=== PATIENT | female | born 1970 | race Caucasian/White ===

== ENCOUNTER 2017-08-30 00:28 | Emergency (ER) | payer BC ==
[2017-08-30 00:39] VITALS: BP 133/83; PULSE 89; TEMP 98.4; BMI 32.3
--- NOTE | 2017-08-30 00:43 | PDOC ---
History of Present Illness - General Chief Complaint: Pain Stated Complaint: RLQ PAIN Time Seen by Provider: 08/30/17 00:31 - History of Present Illness Initial Comments: This 46-year-old woman with a history of cervical carcinoma in situ (s/p hysterectomy 2006) and left oophorectomy last year for large mass (patient states was benign) presents with a few hour history of intermittent marked right lower quadrant/right pelvic pain. No history of fever/chills, nausea/ vomiting/diarrhea. Patient has not had any recent constipation. Pain does not change with position. No history of hematuria/dysuria/urinary frequency or urgency. Patient has no history of renal stones. The patient had her left ovary removed removed last year, patient was told that she had a cyst in the right ovary. She believes that the cyst on the right ovary was removed during the procedure. She was not told that her appendix was removed. Past History - Past Medical History Allergies/Adverse Reactions: Allergies Allergy/AdvReac Type Severity Reaction Status Date / Time No Known Allergies Allergy Verified 05/29/16 23:16 Cancer: Yes (CERVICAL/OVARIAN) COPD: No Other medical history: MIGRANES - Reproductive History Is Patient Now?: No Cervical CA: Yes - Suicide/Smoking/Psychosocial Hx Smoking History: Former smoker Have you smoked in the past 12 months: No Number of Cigarettes Smoked Daily: 0 Information on smoking cessation initiated: No Hx Alcohol Use: No Drug/Substance Use Hx: No Substance Use Type: None Review of Systems - Review of Systems Able to Perform ROS?: Yes Comments:: 12 point review of systems is negative except for what is noted in the history of present illness *Physical Exam - Vital Signs Last Vital Signs Temp Pulse Resp BP Pulse Ox 98.4 F 89 14 133/83 98 08/30/17 00:31 08/30/17 00:31 08/30/17 00:31 08/30/17 00:31 08/30/17 00:31 - Physical Exam Comments: GENERAL: Adult female, alert and oriented 3, in mild distress secondary to right lower quadrant/right pelvic pain HEAD: Normal with no signs of trauma. EYES: PERRLA, EOMI, sclera anicteric, conjunctiva clear. ENT: Ears normal, nares patent, oropharynx clear without exudates. Dry mucous membranes. NECK: Normal range of motion, supple without lymphadenopathy, JVD, or masses. LUNGS: Breath sounds equal, clear to auscultation bilaterally. No wheezes, and no crackles. HEART:Regular rate and rhythm, normal S1 and S2 without murmur, rub or gallop. ABDOMEN:.normal bowel sounds ; moderate right pelvic tenderness without guarding or rebound..No masses No distention. EXTREMITIES: Normal range of motion, no edema. No clubbing or cyanosis. No erythema, or tenderness. NEUROLOGICAL: Cranial nerves II through XII grossly intact. Normal speech. No focal neurological deficits. MUSCULOSKELETAL: Back non-tender to palpation, no CVA tenderness SKIN: Warm, Dry, normal turgor, no rashes or lesions noted. ED Treatment Course - LABORATORY CBC & Chemistry Diagram: 08/30/17 00:54 08/30/17 00:54 Progress Note - Progress Note Progress Note: CBC/chemistry/urinalysis sent and patient given a liter normal saline with 30 mg of Toradol IV. Abdominal/pelvic CT without contrast ordered Abdominal/pelvic CT as interpreted by Imaging phone specialist: No evidence of acute pathology-right ovary is normal sized without evidence of acute pathology; appendix is normal. There is no pelvic free fluid or discrete pelvic lymphadenopathy. No evidence of hydronephrosis or hydroureter. No retained stones seen. The remainder of the organs and visualized vascular structures are normal Laboratory evaluation is essentially normal without evidence of elevated white blood cell count; electrolytes, renal function and hepatic function are all within normal limits. Urinalysis shows 4 red blood cells per high-power field but no other significant abnormality. Results discussed with the patient. She has had significant relief in her pain since administration of Toradol. She does have some residual discomfort in the right pelvic area however. 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 Meanwhile, she should rest and drink plenty of fluids. She return to the emergency room if she has severe pain, vomiting or fever Work documentation was provided for the patient to return to work on Sunday, 09/03 *DC/Admit/Observation/Transfer Diagnosis at time of Disposition: Pelvic pain - Discharge Dispostion Disposition: HOME Condition at time of disposition: Stable - Referrals - Patient Instructions Printed Discharge Instructions: DI for Pelvic Pain Additional Instructions: Drink plenty of water Ibuprofen/acetaminophen/naproxen as needed for pain Follow-up with your plastic hospital products assembler tomorrow if you have continued pain Return to ER if you have severe pain or develop vomiting/fever Return to work on 09/03/17 - Post Discharge Activity Forms/Work/School Notes: Back to Work
[2017-08-30] MEDS ORDERED: KETOROLAC TROMETHAMINE 30 MG/1 ML VIAL IVPUSH ONE (00:56)
[2017-08-30] MEDS ORDERED: KETOROLAC TROMETHAMINE 30 MG/1 ML VIAL ONE (00:57)
[2017-08-30 01:25] LABS: BASO % 1.2 % (0-2.0); EOS % 3.6 % (0-4.5); HEMOGLOBIN 14.4 GM/dL (10.7-15.3); LYMPH % 29.7 % (8-40); MCH 30.3 pg (25.7-33.7); MCHC 34.2 g/dl (32.0-36.0); MEAN CELL VOLUME 88.6 fl (80-96); MEAN PLT VOLUME 9.6 fl (7.5-11.1); MONO % 4.6 % (3.8-10.2); NEUT % 60.9 % (42.8-82.8); PLATELET COUNT 283 K/MM3 (134-434); RBC 4.73 M/mm3 (3.60-5.2); RDW 13.4 % (11.6-15.6); WHITE BLOOD COUNT 9.2 K/mm3 (4.0-10.0)
[2017-08-30 01:33] LABS: URINE APPEARANCE CLEAR; URINE BILIRUBIN NEGATIVE (NEGATIVE); URINE BLOOD 2+ (NEGATIVE); URINE COLOR STRAW; URINE GLUCOSE (UA) NEGATIVE (NEGATIVE); URINE KETONE NEGATIVE (NEGATIVE); URINE LEUK ESTERASE NEGATIVE (NEGATIVE); URINE NITRITE NEGATIVE (NEGATIVE); URINE PROTEIN NEGATIVE (NEGATIVE); URINE UROBILINOGEN NEGATIVE mg/dL (0.2-1.0)
[2017-08-30 01:35] LABS: EPI CELLS RARE /HPF (FEW); URINE BACTERIA RARE /hpf (NONE SEEN); URINE MUCUS RARE
[2017-08-30 02:01] LABS: ALBUMIN 3.6 g/dl (3.4-5.0); ANION GAP 12 (8-16); BILIRUBIN,TOTAL 0.3 mg/dL (0.2-1.0); BLOOD UREA NITROGEN 11 mg/dL (7-18); CALCIUM 8.7 mg/dL (8.5-10.1); CHLORIDE 105 mmol/L (98-107); CO2 24 mmol/L (21-32); CREATININE 0.5 mg/dL (0.55-1.02); GLUCOSE,RANDOM 98 mg/dL (74-106); POTASSIUM 4.8 mmol/L (3.5-5.1); SGPT/ALT 24 U/L (12-78); SODIUM 141 mmol/L (136-145); TOT PROT 8.1 g/dl (6.4-8.2)
[2017-08-30 02:02] LABS: ALK PHOS 107 U/L (45-117); SGOT/AST 24 U/L (15-37)
== END 2017-08-30 02:22 | disposition home or self-care (01) ==
LOC: FER 00:28
PROC: 3E0333Z Introduction of Anti-inflammatory into Peripheral Vein, Percutaneous Approach (ICD-10-PCS; principal; 2017-08-30)
DX: R10.2 Pelvic and perineal pain (principal); Z85.41 Personal history of malignant neoplasm of cervix uteri; Z87.891 Personal history of nicotine dependence
CPT/HCPCS: 36415; 74176-TC; 80053; 81003; 81015; 85025; 99283-25